=== PATIENT | male | born 1990 | race Caucasian/White ===

== ENCOUNTER 2020-02-25 14:35 | Outpatient (CLI) | payer OTHER ==
[~2020-02-25] VITALS: Ht 170.2 cm; Wt 54.5 kg
[2020-02-25 14:44] VITALS: Ht 170.2 cm; Wt 54.5 kg
[2020-02-25 15:19] LABS: BASOPHILS 0.3 % (0-2); EOSINOPHILS 3.8 % (0-7); HEMATOCRIT 43.4 % (42.0-54.0); HEMOGLOBIN 14.7 g/dL (13.5-17.5); IMMATURE GRANULOCYTES 0.3 % (0-5); LYMPHOCYTES 19.2 % (15-50); MCH 29.6 pg (26.0-34.0); MCHC 33.9 g/dL (31.0-37.0); MCV 87.3 fL (80.0-100.0); MEAN PLATELET VOLUME 9.7 fL (7.4-10.4); MONOCYTES 6.9 % (2-11); NEUTROPHILS 69.5 % (40-80); PLATELET COUNT 338 10x3/uL (130-400); RBC 4.97 10x6/uL (4.20-6.10); RDW 14.2 % (11.5-14.5); WBC 15.9 10x3/uL (4.8-10.8)
[2020-02-25 15:25] LABS: APTT 30.1 SECONDS (22.8-39.4); INR 1.05 (0.85-1.17); PROTIME 13.6 SECONDS (11.6-15.0)
[2020-02-25 15:29] LABS: CALCIUM 9.4 mg/dL (8.5-10.1); CARBON DIOXIDE 24.5 mmol/L (21.0-32.0); CREATININE - SERUM 1.3 mg/dL (0.6-1.3); POTASSIUM - SERUM 3.5 mmol/L (3.5-5.1)
[2020-02-25 15:34] LABS: ALBUMIN 4.4 g/dL (3.4-5.0); BILIRUBIN - TOTAL 0.65 mg/dL (0.2-1.3); PROTEIN - SERUM 7.8 g/dL (6.4-8.2)
[2020-02-25] MEDS ORDERED: OXYCODONE HCL5 M1 PO (16:29)
[2020-02-25] MEDS ORDERED: DURICEF500 MG PO (16:29)
[2020-02-25 18:03] VITALS: BP 98/77
--- NOTE | 2020-02-25 19:00 | NUR ---
RECIEVED RESTING IN BED, DROWSY AROUSES EASILY BUT RETURNS TO SLEEP, HERMILO WRAP DRESSING INTACT TO RIGHT HAND AND FINGERS, GOOD CAPILARY REFILL, NO EDEMA OR DRAINAGE NOTED, VSS
--- NOTE | 2020-02-25 20:00 | NUR ---
NOWAWAKE AND ORIENTIATED UP TO BATROOM, GAIT STEADY, DENIES PAIN DUE TO BLOCK, INSTRUCTED TO WATCH FINGERS FOR SWELLING OR DISCOLORATION VERBALIZED UNDERSTANDING, VSS, FAMILY HERE TO TAKE HOME
--- NOTE | 2020-02-25 20:45 | NUR ---
IV DC'C, DISCHARGE INSTRUCTIONS AND PERSCRIPTIONS GIVEN, INSTRUCTED TO CALL DR MUÑOZ OFFICE IN AM FOR FOLLOW UP APPOINTMENT, DC'D VIA W/C AND PRIVATE AUTO
--- NOTE | 2020-02-26 07:19 | OP ---
PATIENT NAME: NASIMA LAM MEDICAL RECORD: [id number] :89 LOCATION:[facility] ADMISSION DATE: SURGEON: RAVIN COFFEY DO DATE OF OPERATION: 02/25/2020 PROCEDURE PERFORMED: Right index finger irrigation and debridement with extensor tendon laceration repair and complex laceration repair of the finger. PREOPERATIVE DIAGNOSIS: Right index finger laceration with extensor tendon involvement. POSTOPERATIVE DIAGNOSIS: Right index finger laceration with extensor tendon involvement. INDICATIONS: Mr. Lam is a 30-year-old male who was using a chainsaw today and came down on to the right index finger. He came right to the ER and was seen to have an open wound with extensor tendon exposed. He was not able to fully extend his index finger at the PIP joint. We could see the tendon lacerated. I informed him we need to fix that and closed the laceration and irrigated and given some antibiotics, so he can go home today. He was informed of the risks including extensor lag, re-rupture of the tendon, continued pain, damage to nerves and vessels in the area, infection, bleeding and he signed the consent. SURGEON: Ravin Coffey DO DESCRIPTION OF PROCEDURE: The patient had block by anesthesia in the preoperative area, taken to the operative suite, given a gram of Ancef. He was already given 1 in the ER and given another one as well as tetanus. The patient was sedated and under MAC the right upper extremity was then prepped and draped in sterile fashion. A timeout was performed; everyone was in agreement with the correct side, site, patient and procedure. An Esmarch was then used to exsanguinate the right lower extremity. The tourniquet was inflated to 250 mmHg and it was up for 18 minutes. We then irrigated out the finger and any loose bodies were removed. At that time, I explored the extensor tendon and it was lacerated over the proximal phalanx. I did a modified ____ repair at the most proximal portion of the proximal phalanx next to the extensor tendon and then several interrupted sutures split longitudinally as well. Those were repaired by interrupted sutures. We then turned over the laceration repair to Asher Perez, certified surgical statistical assistant, who closed the complex laceration. We had 3 different strips and was up to approximately 6 cm in length. He repaired with single interrupted sutures of 4-0 nylon. He was then dressed with Adaptic, 4 x 4s, and Anurag wrap and attached to an Alumafoam splint. He was awakened and taken to recovery in stable condition. BLOOD LOSS: Minimal. COMPLICATIONS: None. TRANSINT:[id number] Voice Confirmation ID: [id number] DOCUMENT ID: [id number] OPERATIVE REPORT [id number] NASIMA LAM MICHAEL D, DO at 0719 CC: [id number] DICTATION DATE: 02/25/201724 SKIVER HEEL TAP: 02/26/20 0435 DEP CLI 02/25/20 [id number] [place] [address]
== END 2020-02-25 20:45 | disposition home or self-care (01) ==
LOC: D.OPS 14:35 → D.ER 14:35 → D.M3 14:35 → EDSTATUS 15:00 → D.ER 16:17 → D.M3 19:04 → D.OPS 20:45
PROVIDERS: Family Medicine; ATTEND Orthopaedic Surgery
DX: S61.210A Laceration without foreign body of right index finger without damage to nail, initial encounter (principal); W45.8XXA Other foreign body or object entering through skin, initial encounter; Y93.9 Activity, unspecified; Y92.9 Unspecified place or not applicable; M79.621 Pain in right upper arm